=== PATIENT | male | born 1975 | race Caucasian/White ===

== ENCOUNTER → 2016-08-09 | Outpatient (CLI) | payer OTHER ==
--- NOTE | 2016-08-09 22:45 | REP ---
Clinical: Pain. Technique: AP, lateral, bilateral oblique and sunrise views of the right knee. Findings: Advanced tricompartmental osteoarthritic degenerative changes are appreciated along with evidence for prior ACL repair. 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 No acute fracture or dislocation. Small effusion cannot be excluded. Impression: Evidence for prior surgery and advanced tricompartmental osteoarthritic degenerative changes. Signed by Javon Merchant MD 08/09/2016 10:37 P
== END ==
LOC: M RAD 09:14
PROVIDERS: ATTEND Surgery
DX: M25.561 Pain in right knee (principal)